=== PATIENT | female | born 1965 | race Caucasian/White ===

== ENCOUNTER → 2016-12-15 | Outpatient (CLI) | payer BC ==
[~2016-12-15] MED LIST: ESTR1TAB21 PO; IBUP-1724 PO; LEVO75TA10 PO; LISI1TAB13 PO; ZOLP10TA2 PO
--- NOTE | 2016-12-15 17:06 | DI ---
Indication: ITS.REASON: M25.562 PAIN IN LEFT KNEE PROCEDURE: MRI KNEE LEFT W/O CONTRAST: Encounter: Initial Comparison: None Technique: Multiplanar multisequence MR imaging of the left knee was performed without contrast. Findings: The lateral meniscus is normal. Medial meniscus is intact. The ACL and PCL are normal. The MCL and lateral collateral ligament complex are intact. The extensor mechanism is normal. Slight edema in the posterior aspect of the central tibia. No acute fracture identified. The cartilage of the lateral compartment is normal. Medial compartment cartilage is normal. Patellofemoral compartment shows an area of cartilage fissuring in the median ridge. There is a small amount of edema in the superior aspect of Hoffa's fat pad. Moderate joint effusion. No evidence of a synovitis. Muscular signal intensity is normal. No Bakers cyst. Impression: Moderate joint effusion without clear etiology. No definite meniscal or ligamentous tear. Possible bone contusion in the central posterior tibial plateau .
== END ==
LOC: IMA 15:49
PROVIDERS: ATTEND Family Medicine
DX: M25.462 Effusion, left knee (principal); M25.562 Pain in left knee